=== PATIENT | female | born 1985 | race Caucasian/White ===

== ENCOUNTER → 2017-07-04 | Outpatient (CLI) | payer OTHER | LOC: COL.PUL 06-17 13:00 | DX: R06.02 Shortness of breath (principal) | CPT/HCPCS: J7674 ==

== ENCOUNTER 2022-02-08 10:30 | Outpatient (RCR) | payer OTHER ==
[~2022-02-08 10:30] MED LIST: ATIVAN 1MG T1 MG/TAB PO; BCP TD; CELEBREX 200MG200 MG PO; CEPHALEXIN500 M1 PO; CIPRO 500MG TA500 MG PO; CLARITIN; COLACE 100100 MG/CAP PO; CYMBALTA 60MG60 MG PO; DESYREL 50MG50 MG PO; DIFLUCAN 100MG100 MG PO; DIFLUCAN150 MG PO; EFFEXOR 75M75 MG/TAB PO; FLAGYL500 MG PO; FLOVENT0.11 MG/AC IH; HIBICLENS TP; MELAT3MGTAB PO; MIRALAX PA17 GM/Dose PO; MYSOLINE 5050 MG/TAB PO; NORCO 325 MG-51 TAB PO; NUVARING1 ICR VG; OYSTER SHELL C500 M2 PO; PHENERGAN 25 TA25 MG PO; PRENATAL VITAMI1 TAB PO; SEPTRA DS 8001 TAB PO; VENTOLIN0.09 MG IH; VICODIN 5/5001 UDTAB PO; VITAMIN D 1001000 IU PO; YAZ 28 3 MG-0.01 TAB PO
== END 2022-02-20 | disposition home or self-care (01) ==
LOC: WSPT
DX: M25.552 Pain in left hip (principal); M54.50 Low back pain, unspecified; M54.2 Cervicalgia

== ENCOUNTER 2022-03-05 15:45 | Outpatient (RCR) | payer OTHER | END 2022-03-22 | disposition home or self-care (01) | LOC: WSC | DX: M25.559 Pain in unspecified hip (principal) ==

== ENCOUNTER 2022-03-23 14:54 | Outpatient (RCR) | payer OTHER | END 2022-04-16 14:54 | LOC: WSC 14:54 | DX: M54.2 Cervicalgia (principal); M54.50 Low back pain, unspecified; M25.552 Pain in left hip ==

== ENCOUNTER 2022-11-01 13:28 | Day surgery (SDC) | payer OTHER ==
[~2022-11-01] VITALS: Ht 170.2 cm; Wt 108.2 kg
[2022-11-01] MEDS ORDERED: RT ADVAIR HFA 412 GM IH (14:02)
[2022-11-01] MEDS ORDERED: FLEXERIL 1010 MG/TAB PO (14:02)
[2022-11-01] MEDS ORDERED: NEURONTIN300 MG/CAP PO (14:03)
[2022-11-01] MEDS ORDERED: RT ADVAIR HFA 1112 G IH (14:03)
[2022-11-01] MEDS ORDERED: PROTONIX 40MG T40 MG PO (14:04)
[2022-11-01] MEDS ORDERED: TYLENOL 8 HR PO (14:05)
[2022-11-01] MEDS ORDERED: WELLBUTRIN SR150 M1 PO (14:05)
[2022-11-01 14:27] VITALS: BP 133/85; PULSE 83; TEMP 98.6
[2022-11-01] MEDS ORDERED: OXY IR5 MG PO (18:07)
[2022-11-01] MEDS ORDERED: FLOMAX 0.40.4 MG/CAP PO (18:07)
[2022-11-01 18:40] VITALS: BP 138/95; PULSE 72; TEMP 97
[2022-11-01 18:55] VITALS: BP 133/89; PULSE 76
[2022-11-01 20:45] VITALS: BP 144/94; PULSE 78
--- NOTE | 2022-11-01 21:02 | NUR ---
1839: PT TO [facility] FROM PACU S/P CYSTOSCOPY, BILAT URETEROSCOPY, STENT PLACEMENT AND LASER ABLATION. A&O, VSS ON RA, HAS AMBULATED TO BR WITH STEADY GAIT/STANDBY ASSIST. PERSISTENT BUT MODERATE CRAMPING (BILA LOWER ABD), HAS RECENTLY BEEN ADMIN FLOMAX AND LEVSIN FOR CRAMPING/SPASM. PLACED ON MONITOR, RECEIVED REPORT AND ASSUMED CARE OF PT FROM NEEDLE VALVE OPERATORZARIA BERNAL. HAS TOLERATED 12OZ OF WATER WITHOUT COMPLAINT, SALINE LOCKED. 1849 BROUGHT TO [facility] B[facility] FROM PACU, WHERE [facility] RECOVERY/DC HAD BEEN STARTED - PLACED ON MONITOR. FRIENDS/RIDE HOME IN ROOM, DR FAIR HAS BEEN IN TO SPEAK WITH SAME. 1909 PROVED JUICE AND TOAST, PT FREQUENTLY AMBULATING TO BR FOR URGENCY ~ 40 S/P MEDS. NAD, VSS ON RA, A&O. 1939 D/C ALL READY, PT HAS BEEN UPDATED ON DISPO PLAN AND HAS BEEN AGREEABLE, RETURNS FROM BR WITH C/O INCREASED CRAMPING AND BLOOD WHILE VOIDING, THIS NURSE UNABLE TO ASSESS PT HAD FLUSHED. WILL TREAT FOR PAIN AND MONITOR PER PT REQUEST. OTHERWISE STABLE. 1954 ADMIN PERCOCET-5 ORDERED. PROVIDED MORE FOOD AND JUICE - PT HAS AZO AND HEATING PAD AT HOME - ED ON HOME CARE AND SYMPTOM MGMT THRU THE NIGHT, PT ALL PREPP'D FOR D/C. 2004 TOLERATING FOOD, NAD, STABLE. PT ED ON NORMAL S/S FOLLOWING THIS PROCEEDURE, REASSURANCE PROVIDED. 2009 PT VOIDED - MINIMAL BLOOD AND SCANT CLOT PER RN VISUAL. PT ENCOURAGED THIS IS WDL FOR THIS PROCEEDURE. PROVIDED ADDITIONAL WB FOR ABDOMEN/CRAMPING. A&O, NAD, PWD. S/S FOR RTC AND D/C INSTRUCTIONS HAVE BEEN ONGOING SINCE [facility] ARRIVAL. 2044 PT GETTING DRESSED, PENDING IV D/C AND HOME
--- NOTE | 2022-11-01 21:24 | NUR ---
PT HAS REMOVED MONITOR WHILE IN ROOM DUE TO FREQUENT TRIPS TO BR, DESPITE ED ON NEED TO MONITOR. VS WDL ON RA WHILE IN GURNEY/IN ROOM. 2144 PT TAKEN TO ED EXIT VIA W/C, WITH ALL BELONGINGS AND PAPERWORK AND ASSISTED INTO POV PASSENGER SEAT, FRIEND DRIVING HOME. ALL PARTIES AWARE OF PLAN AND PT TO CALL OFFICE IN AM FOR F/U APPT, QUESTIONS/CONCENRS. VS WDL, IV D/C'D, NAD, PWD, STEADY GAIT, TOLERATED PO WELL, VOIDING. C/O ANXIETY WITH HISTORY OF SAME, HAS MEDS AT HOME. PT APPARENTLY STABLE AND AGREEABLE TO D/C HOME.
[2022-11-01 21:45] VITALS: BP 142/92; PULSE 84
== END 2022-11-01 21:45 | disposition home or self-care (01) ==
LOC: SDCO 13:28
DX: N20.0 Calculus of kidney (principal); E66.9 Obesity, unspecified; Z68.36 Body mass index [BMI] 36.0-36.9, adult; K21.9 Gastro-esophageal reflux disease without esophagitis
CPT/HCPCS: C1769; C2617; J0690; J2405; J2704; J3010; J7120

== ENCOUNTER → 2023-08-21 | Outpatient (CLI) | payer OTHER ==
[~2023-08-21] MED LIST changes: +FLEXERIL 1010 MG/TAB PO; +FLOMAX 0.40.4 MG/CAP PO; +NEURONTIN300 MG/CAP PO; +OXY IR5 MG PO; +PERCOCET 325 MG1 TA2 PO; +PROTONIX 40MG T40 MG PO; +RT ADVAIR HFA 1112 G IH; +RT ADVAIR HFA 412 GM IH; +TYLENOL 8 HR PO; +WELLBUTRIN SR150 M1 PO; +ZOFRAN ODT4 MG PO
== END ==
LOC: CANSCHCLI → MC.RAD 14:30
DX: Z12.31 Encounter for screening mammogram for malignant neoplasm of breast (principal)